=== PATIENT | female | born 1990 | race Caucasian/White ===

== ENCOUNTER 2019-03-30 01:44 | Inpatient (IN) | payer OTHER ==
[2019-03-30] VITALS (21 sets, daily range): BP systolic 90–103; BP diastolic 45–64
[2019-03-30 02:24] LABS: CREATININE 7.4 mg/dL (0.5-1.5); POTASSIUM 4.3 mmol/L (3.5-5.1)
[2019-03-30 02:27] LABS: BASOPHILS % (AUTO) 0.7 % (0.0-5.0); EOSINOPHILS % (AUTO) 0.9 % (0.0-8.0); HEMATOCRIT 28.4 % (36-48); MEAN CORPUSCULAR HEMOGLOBIN 31.2 pg (27.0-33.0); MEAN CORPUSCULAR HGB CONC 33.4 g/dL (32.0-36.0); MEAN CORPUSCULAR VOLUME 93.3 fL (79-99); MONOCYTES % (AUTO) 8.2 % (3.0-13.0); NEUTROPHILS % (AUTO) 80.2 % (40.0-77.0); PLATELET COUNT (AUTO) 106 K/uL (130-400); RED BLOOD CELL COUNT(AUTO) 3.05 MIL/uL (4.00-5.50); RED CELL DISTRIBUTION WIDTH 19.3 % (11.0-15.5); WHITE BLOOD COUNT (AUTO) 10.1 K/uL (4.8-10.8)
[2019-03-30 02:35] LABS: BILIRUBIN,DIRECT 0.2 mg/dL (0.0-0.3); BILIRUBIN,TOTAL 0.5 mg/dL (0.2-1.0); TOTAL PROTEIN, SERUM 6.3 g/dL (6.0-8.3)
[2019-03-30 02:41] LABS: B-TYPE NATRIURETIC PEPTIDE 62 pg/mL (0-100)
[2019-03-30] MEDS ORDERED: ZOSYN 3.375GM+NS 50ML 50 ML IV SCH (07:30)
[2019-03-30] MEDS ORDERED: ONDANSETRON HCL MDV 20ML 2 MG/ML VIAL IVP PRN (07:30)
[2019-03-30] MEDS ORDERED: ENOXAPARIN SODIUM 30 MG/0.3 ML SQ SCH (09:00)
[2019-03-30] MEDS ORDERED: PANTOPRAZOLE SODIUM 40 MG TABLET.DR PO SCH (09:00)
[2019-03-30] MEDS: PANTOPRAZOLE 40 MG/VIAL IVP SCH (09:00)
[2019-03-30] MEDS ORDERED: ZOSYN 3.375GM+NS 50ML 50 ML IV ONE (09:21)
[2019-03-30] MEDS ORDERED: ENOXAPARIN SODIUM 30 MG/0.3 ML SQ ONE (09:21)
--- NOTE | 2019-03-30 10:05 | NUR ---
Roderick Craig met with pt who lives with her BF Carlyle Candelario [id number]. Pt is independent, drives, works at [employer], no DMe or home care services. Pt has no PCP or rx coverage. Pt denies dc needs. Plan is home with BF Addendum: 03/30/19 at 1006 by JAH CALDERA SS Amended: Links added.
[2019-03-30] MEDS ORDERED: HEPARIN SODIUM 5000UNIT/ML 1ML VIAL ONE (15:49)
[2019-03-30] MEDS ORDERED: BACITRACIN 50,000 UNIT VIAL ONE (16:33)
[2019-03-30] MEDS ORDERED: CLINDAMYCIN 600 MG/D5% WATER 50 ML IV ONE (16:43)
[2019-03-30] MEDS ORDERED: NEOSTIGMINE 5MG/5ML SYR IV ONE (16:58)
[2019-03-30] MEDS ORDERED: DEXAMETHASONE SOD PHOSPHATE 10MG/ML 1ML VIAL ONE (16:58)
[2019-03-30] MEDS ORDERED: SUCCINYLCHOLINE 200MG/10ML SYR ONE (16:58)
[2019-03-30] MEDS ORDERED: PROPOFOL 10 MG/ML 20ML VIAL IV ONE (16:58)
[2019-03-30] MEDS ORDERED: FENTANYL CITRATE PF 50 MCG/1 ML 2ML VIAL ONE ×2 (16:58→18:42)
[2019-03-30] MEDS ORDERED: LIDOCAINE PF 2% 5ML ABBOJECT ONE (16:58)
[2019-03-30] MEDS ORDERED: MIDAZOLAM HCL 1 MG/ML 2ML VIAL ONE (16:58)
[2019-03-30] MEDS ORDERED: ONDANSETRON HCL 4 MG/2 ML VIAL ONE (16:58)
[2019-03-30] MEDS ORDERED: GLYCOPYRROLATE 1 MG/5 ML SYRINGE ONE (16:58)
[2019-03-30] MEDS ORDERED: ROCURONIUM 10MG/1ML SYR 10 MG/ML ML ONE (16:59)
[2019-03-30] MEDS ORDERED: CEFAZOLIN SODIUM 1 GM VIAL IVP PRN (17:00)
[2019-03-30] MEDS ORDERED: VASOPRESSIN 20 UNITS/ML 1ML VIAL ONE (17:26)
[2019-03-30 17:48] LABS: ABG BASE EXCESS 1.1 mmol/L (-2.0-3.0); ABG HCO3 23.7 mmol/L (21.0-28.0); ABG OXYGEN SATURATION 94.9 % (95.0-99.0); ABG PCO2 31 mmHg (32-45)
[2019-03-30] MEDS ORDERED: BUPIVACAINE/PF 0.25% 30ML VIAL IJ ONE (18:18)
--- NOTE | 2019-03-30 18:50 | NUR ---
CHEST TUBE TO WALL SUCTION. Addendum: 03/30/19 at 2050 by MU YARBROUGH RN RN Amended: Links added.
--- NOTE | 2019-03-30 18:50 | NUR ---
PT WITH DIALYSIS PORT RT CHEST AREA. PT WITH A PERITONEAL DIALYSIS PORT, COVERED WITH A DRESSING.
[2019-03-30] MEDS ORDERED: MEPERIDINE-PF 25 MG/ML SYG ONE ×2 (19:17→19:49)
--- NOTE | 2019-03-30 20:30 | NUR ---
PATIENT ARRIVED ON UNIT. CURRENTLY ON 3L NC, 02 SATS AT 97%. DENIES SOB. CHEST TUBE AT 20 CMS CONNECTION TO SUCTION. SEROSANGUINEOUS DRAINAGE. PATIENT C/O 4/10 PAIN UPON ARRIVAL. PATIENT HAS A R UPPER CHEST PEREZ ACCESSED 03/30. PATIENT HAS PERITONEAL DIALYSIS CATHETER L ABDOMEN. CATHETER OCCLUDED. DR ELLIS CONSULTED FOR OCCLUSION. PATIENT RESTING IN BED. TOLERATING WATER. NO NAUSEA OR VOMITING. WILL CONTINUE TO MONITOR.
[2019-03-30 21:55] LABS: AMYLASE,BODY FLUID 42 U/L; GLUCOSE,BODY FLUID 55 mg/dL (1-40); LIPASE,BODY FLUID 135 U/L
[2019-03-30 22:08] LABS: APPEARANCE BODY FLUID BLOODY (CLEAR); BODY FLUID RBC 1280000 /cu. mm.; BODY FLUID WBC 444 /cu. mm.; COLOR,BODY FLUID RED (LT YELLOW); SPECIMENTYPE,BODY FLUID PERICARDIAL; TOTAL VOLUME,BODY FLUID 50 mL
[2019-03-30 22:16] LABS: BF LYMPHOCYTE 33 %; BF MONOCYTE 3 %; BF OTHER CELLS 1
[2019-03-30 22:21] LABS: PH, BODY FLUID 8
--- NOTE | 2019-03-30 23:00 | NUR ---
INFORMED PITO MCINTYRE OF AMOXICILLIN ALLERGY. PER PITO Pak/Leonila PULIDO AND ADMINISTER CLINDAMYCIN 600 QID.
[2019-03-30] MEDS: HYDROMORPHONE 1 MG/1 ML AMP IVP PRN (23:04)
--- NOTE | 2019-03-31 02:25 | NUR ---
PATIENT C/O 9/10 PAIN. CURRENT PAIN MEDICATION IS NOT DUE, AVAILABLE PRN Q6H. PER PITO MCINTYRE GIVE 4MG OF MORPHINE Q4H, PAIN 7-10.
[2019-03-31] MEDS ORDERED: MORPHINE SULFATE 4 MG/1ML SYG IV PRN (02:30)
[2019-03-31 03:10] VITALS: BP 109/63
[2019-03-31] MEDS ORDERED: MORPHINE SULFATE 4 MG/1ML SYG ONE (03:12)
[2019-03-31 03:52] LABS: BASOPHILS % (AUTO) 0.6 % (0.0-5.0); EOSINOPHILS % (AUTO) 0.6 % (0.0-8.0); HEMATOCRIT 28.2 % (36-48); LYMPHOCYTES % (AUTO) 12.4 % (21.0-51.0); MEAN CORPUSCULAR HGB CONC 32.2 g/dL (32.0-36.0); MEAN CORPUSCULAR VOLUME 93.1 fL (79-99); MONOCYTES % (AUTO) 12.4 % (3.0-13.0); PLATELET COUNT (AUTO) 127 K/uL (130-400); RED BLOOD CELL COUNT(AUTO) 3.03 MIL/uL (4.00-5.50); RED CELL DISTRIBUTION WIDTH 19.1 % (11.0-15.5); WHITE BLOOD COUNT (AUTO) 10.5 K/uL (4.8-10.8)
[2019-03-31 04:14] LABS: CREATININE 6.4 mg/dL (0.5-1.5); POTASSIUM 4.5 mmol/L (3.5-5.1)
[2019-03-31 08:18] VITALS: BP 117/70
[2019-03-31] MEDS: CLINDAMYCIN 600 MG/D5% WATER 50 ML IV SCH ×4 (08:20→21:14)
[2019-03-31] MEDS: MORPHINE SULFATE 4 MG/1ML SYG IV PRN ×2 (08:21→12:17)
[2019-03-31] MEDS: PANTOPRAZOLE 40 MG/VIAL IVP SCH (10:17)
--- NOTE | 2019-03-31 10:48 | NUR ---
HARJIT Alex for in the floor. Notified the heart rate 130 for the patient.
[2019-03-31 12:03] VITALS: BP 112/71
[2019-03-31 15:43] VITALS: BP 117/71
--- NOTE | 2019-03-31 15:46 | NUR ---
SALENA De Dios for Gm Morocho's office in the floor. Checked the peritoneal access and found that it started to working. Sent the specimen for cell count and culture.
[2019-03-31 19:21] VITALS: BP 129/79
[2019-03-31] MEDS: CARVEDILOL 3.125 MG TABLET PO SCH (21:14)
[2019-03-31 23:01] VITALS: BP 120/75
[2019-03-31] MEDS: HYDROMORPHONE 1 MG/1 ML AMP IVP PRN (23:48)
[2019-04-01] VITALS (7 sets, daily range): BP systolic 96–117; BP diastolic 59–79
--- NOTE | 2019-04-01 03:54 | NUR ---
Patient alert and oriented. Resting in bed. Chest tube 20cms to suction, serosanguineous output. Medicated for pain x1. Denies sob. HR remains elevated in 120s. Will continue to monitor.
[2019-04-01] MEDS: MORPHINE SULFATE 4 MG/1ML SYG IV PRN ×3 (05:28→21:29)
--- NOTE | 2019-04-01 05:39 | NUR ---
PATIENT UP TO CHAIR
[2019-04-01] MEDS: PANTOPRAZOLE 40 MG/VIAL IVP SCH (08:49)
[2019-04-01] MEDS: CLINDAMYCIN 600 MG/D5% WATER 50 ML IV SCH ×4 (08:49→21:33)
[2019-04-01] MEDS: CARVEDILOL 3.125 MG TABLET PO SCH ×2 (08:50→21:33)
[2019-04-01 09:29] LABS: APPEARANCE BODY FLUID CLEAR (CLEAR); COLOR,BODY FLUID YELLOW (LT YELLOW); SPECIMENTYPE,BODY FLUID PERITONEAL; TOTAL VOLUME,BODY FLUID 110 mL
[2019-04-01 09:30] LABS: BODY FLUID RBC 1209 /cu. mm.; BODY FLUID WBC 189 /cu. mm.
[2019-04-01 09:35] LABS: BF LYMPHOCYTE 74 %; BF MESOTHELIAL 15 %; BF MONOCYTE 10 %
[2019-04-01 09:35] LABS: T4 (THYROXINE) 8.8 ug/dL (4.7-13.3); THYROID STIMULATING HORMONE 2.43 uIU/mL (0.36-3.74)
[2019-04-01] MEDS ORDERED: HEPARIN SODIUM 5000UNIT/ML 1ML VIAL ONE (15:25)
[2019-04-01] MEDS ORDERED: SODIUM CHLORIDE 0.9% 1000ML 1,000 ML IV ONE (15:25)
[2019-04-01] MEDS ORDERED: 0.9% SODIUM CHLORIDE 1000 ML IV BAG IV PRN (15:30)
[2019-04-01] MEDS ORDERED: SODIUM CHLORIDE 0.9% 1000ML 1,000 ML IV PRN (15:30)
[2019-04-01] MEDS ORDERED: ACETAMINOPHEN 325 MG TAB PO PRN (15:30)
[2019-04-01] MEDS ORDERED: HEPARIN SODIUM 5000UNIT/ML 1ML VIAL IJ PRN (15:30)
--- NOTE | 2019-04-01 18:18 | NUR ---
Patient went for HD. Heparin given by HD nurse.
[2019-04-02] VITALS (7 sets, daily range): BP systolic 89–106; BP diastolic 54–68
[2019-04-02 03:41] LABS: HEMATOCRIT 27.7 % (36-48); MEAN CORPUSCULAR HEMOGLOBIN 29.4 pg (27.0-33.0); MEAN CORPUSCULAR HGB CONC 32.3 g/dL (32.0-36.0); MEAN CORPUSCULAR VOLUME 90.9 fL (79-99); PLATELET COUNT (AUTO) 232 K/uL (130-400); RED BLOOD CELL COUNT(AUTO) 3.05 MIL/uL (4.00-5.50); RED CELL DISTRIBUTION WIDTH 18.3 % (11.0-15.5); WHITE BLOOD COUNT (AUTO) 7.6 K/uL (4.8-10.8)
[2019-04-02 04:03] LABS: CREATININE 5.6 mg/dL (0.5-1.5); PHOSPHORUS 4.1 mg/dL (2.5-4.9); POTASSIUM 3.9 mmol/L (3.5-5.1)
[2019-04-02] MEDS: THIAMINE HCL 100 MG TABLET PO SCH (09:53)
[2019-04-02] MEDS: CLINDAMYCIN 600 MG/D5% WATER 50 ML IV SCH ×4 (09:54→21:12)
[2019-04-02] MEDS: PANTOPRAZOLE 40 MG/VIAL IVP SCH (09:54)
[2019-04-02] MEDS: METOPROLOL TARTRATE 25 MG TAB PO SCH (21:00)
[2019-04-03] MEDS: CLINDAMYCIN 600 MG/D5% WATER 50 ML IV SCH ×4 (03:04→20:33)
[2019-04-03 03:40] VITALS: BP 106/56
[2019-04-03 07:00] VITALS: BP 104/53
[2019-04-03] MEDS: THIAMINE HCL 100 MG TABLET PO SCH (09:51)
[2019-04-03] MEDS: PANTOPRAZOLE 40 MG/VIAL IVP SCH (09:51)
[2019-04-03] MEDS: METOPROLOL TARTRATE 25 MG TAB PO SCH ×2 (09:51→20:33)
[2019-04-03 11:00] VITALS: BP 107/69
--- NOTE | 2019-04-03 14:15 | NUR ---
DR. Raymond REYNAGA IN ROOM SPEAKING WITH PT. AND PT.'S MOTHER AT BEDSIDE RE:PLAN OF CARE. QUESTIONS ANSWERED BY DR. REYNAGA.
--- NOTE | 2019-04-03 14:27 | NUR ---
DR. Raymond URBINA IN ROOM SPEAKING WITH PT. AND PT.'S MOTHER AT BEDSIDE. QUESTIONS ANSWERED BY DR. URBINA.
[2019-04-03] MEDS: MORPHINE SULFATE 4 MG/1ML SYG IV PRN (15:26)
--- NOTE | 2019-04-03 15:45 | NUR ---
PT. IN BED FOR CHEST TUBE REMOVAL. CHEST TUBE REMOVED WITH ASSISTANCE FROM Jose Carlos CHANG RN. PT. TOLERATED WELL. CALL LIGHT WITHIN REACH. BED LOW, SIDE RAILS UP X2. FAMILY MEMBERS ALLOWED BACK IN ROOM.
[2019-04-03 16:00] VITALS: BP 122/72
--- NOTE | 2019-04-03 17:00 | NUR ---
SITTING UP IN BED EATING DINNER. DENIES ANY C/O SOB. CALL LIGHT WITHIN REACH. FAMILY MEMBERS AT BEDSIDE.
[2019-04-03 19:34] VITALS: BP 119/70
[2019-04-04] VITALS: BP 124/67
[2019-04-04] MEDS: CLINDAMYCIN 600 MG/D5% WATER 50 ML IV SCH ×2 (03:32→07:48)
[2019-04-04 04:48] VITALS: BP 118/68
[2019-04-04] MEDS: THIAMINE HCL 100 MG TABLET PO SCH (07:48)
[2019-04-04] MEDS: METOPROLOL TARTRATE 25 MG TAB PO SCH (07:48)
[2019-04-04 07:50] VITALS: BP 117/66
--- NOTE | 2019-04-04 08:00 | NUR ---
ASSESSMENT PT IS AAOX3 DENIES CP DENIES SOB DENIES NV AT THIS TIME, SITTING UPRIGHT IN BED WITH NO COMPLAINTS. INCISION SITE AND OLD CT SITE WITH DRESSING IN PLACE, CLEAN AND DRY. VISITOR AT BEDSIDE, CALL LIGHT WITHIN REACH.
[2019-04-04] MEDS ORDERED: PANTOPRAZOLE SODIUM 40 MG TABLET.DR PO SCH (09:00)
[2019-04-04 11:17] VITALS: BP 134/71
--- NOTE | 2019-04-04 12:00 | NUR ---
DIALYSIS AT BEDSIDE
--- NOTE | 2019-04-04 12:10 | NUR ---
HEPARIN FOR DIALYSIS PACKING GIVEN TO QUIN PAPER CUP HANDLE MACHINE OPERATOR NURSE
[2019-04-04 15:15] VITALS: BP 112/64
[2019-04-04] MEDS ORDERED: METO25 PO (15:35)
--- NOTE | 2019-04-04 16:32 | NUR ---
DC TO HOME ALL QUESTIONS ANSWERED, AGREE TO FOLLOW UP WITH [facility] ORDERED, AGREE TO TAKE MED ORDERED. SUTURE REMOVED BY ELIZABETH MARTINO. ALL BELONGINGS TAKEN, DOWN VIA WC TO VEHICLE WITH NURSE AIDE.
[2019-04-05 06:14] LABS: HEPATITIS A ANTIBODY IGM Negative (Negative); HEPATITIS B CORE IGM Negative (Negative); HEPATITIS Bs ANTIGEN SCREEN P Negative (Negative)
== END 2019-04-04 16:32 | disposition home or self-care (01) | DRG 270 ==
LOC: EDH 01:44 → EDHIP 01:45 → 2DH 20:24
PROVIDERS: ADMIT Internal Medicine; ATTEND Internal Medicine
PROC: 02BN0ZX Excision of Pericardium, Open Approach, Diagnostic (ICD-10-PCS; 2019-03-30)
PROC: 5A1D70Z Performance of Urinary Filtration, Intermittent, Less than 6 Hours Per Day (ICD-10-PCS; 2019-03-30)
PROC: 0W9D0ZZ Drainage of Pericardial Cavity, Open Approach (ICD-10-PCS; principal; 2019-03-30 17:00)
PROC: 5A1D70Z Performance of Urinary Filtration, Intermittent, Less than 6 Hours Per Day (ICD-10-PCS; 2019-04-01)
PROC: 5A1D70Z Performance of Urinary Filtration, Intermittent, Less than 6 Hours Per Day (ICD-10-PCS; 2019-04-04)
DX: I31.3 Pericardial effusion (noninflammatory) (principal); N18.6 End stage renal disease; J90 Pleural effusion, not elsewhere classified; I12.0 Hypertensive chronic kidney disease with stage 5 chronic kidney disease or end stage renal disease; N17.9 Acute kidney failure, unspecified; I31.4 Cardiac tamponade; F43.20 Adjustment disorder, unspecified; E11.22 Type 2 diabetes mellitus with diabetic chronic kidney disease; D64.9 Anemia, unspecified; E11.51 Type 2 diabetes mellitus with diabetic peripheral angiopathy without gangrene; I95.9 Hypotension, unspecified; R06.89 Other abnormalities of breathing; R00.0 Tachycardia, unspecified; Z99.2 Dependence on renal dialysis; Z88.1 Allergy status to other antibiotic agents; Z88.2 Allergy status to sulfonamides
CPT/HCPCS: 36415; 70450; 71045; 74176; 80048; 80074; 80076; 82150; 82435; 82803; 82945; 82947; 83605; 83615; 83690; 83735; 83880; 83986; 84100; 84132; 84157; 84295; 84436; 84443; 84484; 84702; 85018; 85025; 85027; 86038; 86160; 86162; 86215; 86235; 86850; 86900; 86901; 86922; 87071; 87076; 87116; 87205; 87206; 87210; 87520; 88108; 88305; 89051; 90935; 93005; 93306; 93308; 97039; A7048; C9113; G0378; J0330; J1100; J1170; J1644; J1650; J2001; J2175; J2250; J2270; J2405; J2543; J2704; J2710; J3010; J3490; J7030; J7120

== ENCOUNTER 2019-05-04 06:45 | Day surgery (SDC) | payer MEDICARE ==
[2019-05-03 10:18] VITALS: BP 139/90
[~2019-05-04] VITALS: Ht 157.5 cm; Wt 51.8 kg
[~2019-05-04 06:45] MED LIST: IRON150C5 PO; METO25 PO; TUMS PO
[2019-05-04 07:05] VITALS: BP 133/87
[2019-05-04 07:27] LABS: BASOPHILS % (AUTO) 1.2 % (0.0-5.0); EOSINOPHILS % (AUTO) 8.3 % (0.0-8.0); HEMATOCRIT 39.9 % (36-48); LYMPHOCYTES % (AUTO) 26.9 % (21.0-51.0); MEAN CORPUSCULAR HEMOGLOBIN 30.3 pg (27.0-33.0); MEAN CORPUSCULAR VOLUME 91.6 fL (79-99); MONOCYTES % (AUTO) 8.1 % (3.0-13.0); NEUTROPHILS % (AUTO) 55.5 % (40.0-77.0); NUCLEATED RED BLOOD CELLS 0.1 % (0.0-0.19); PLATELET COUNT (AUTO) 279 K/uL (130-400); RED BLOOD CELL COUNT(AUTO) 4.36 MIL/uL (4.00-5.50); WHITE BLOOD COUNT (AUTO) 7.9 K/uL (4.8-10.8)
[2019-05-04 07:34] LABS: ALBUMIN 2.8 g/dL (3.5-5.0); BILIRUBIN,TOTAL 0.3 mg/dL (0.2-1.0); TOTAL PROTEIN, SERUM 6.9 g/dL (6.0-8.3)
[2019-05-04 07:36] LABS: INR 1.07 (0.85-1.15); PROTHROMBIN TIME 11.2 SEC (9.6-11.6)
[2019-05-04 07:40] LABS: CREATININE 13.7 mg/dL (0.5-1.5)
[2019-05-04] MEDS ORDERED: LIDOCAINE HCL 1% MDV 50ML VIAL ONE (07:46)
--- NOTE | 2019-05-04 08:20 | NUR ---
RIGHT PERMACATH REMOVAL - PATIENT PREPPED AT BEDSIDE FOR RIGHT PERMACATH REMOVAL BY DR TABOR. TIME OUT PERFORMED PRIOR TO START OF PROCEDURE. PERMACATH REMOVED INTACT, MANUAL PRESSURE HELD TO SITE X 10MIN. NO BLEEDING OR HEMATOMA NOTED. 4X4 AND OPSITE DRESSING APPLIED TO SITE. HOB ELEVATED 45 DEGREES. REPORT GIVEN TO FISH MARTINO.
[2019-05-04 08:30] VITALS: BP 120/86
--- NOTE | 2019-05-04 08:30 | NUR ---
RECEIVE PROCEDURE DONE. RECEIVED PT AWAKE ALERT ORIENTED X3. NO COMPLAINTS MADE. DRESSING TO RIGHT UPPER CHEST DRY AND INTACT, SITE NO SWELLING, NO OOZING, NO HEMATOMA NOTED. KEPT HEAD OF BED ELEVATED, PT/BOYFRIEND INSTRUCTED TO MAINTAIN HEAD OF BED ELEVATED, OR ELEVATE HEAD WITH PILLOWS AT HOME, BOTH VERBALIZED UNDERSTANDING. OFFERED ORAL FLUIDS, PT REFUSED.
[2019-05-04 08:45] VITALS: BP 126/85
[2019-05-04 09:00] VITALS: BP 127/86
--- NOTE | 2019-05-04 09:10 | NUR ---
DISCHARGE PT DISCHARGED VIA WHEELCHAIR WITH BOYFRIEND. PT STABLE. NO COMPLAINTS MADE. PUNCTURE SITE TO RIGHT UPPER CHEST REMAINS SOFT, NO SWELLING NOTED, DRESSING DRY AND INTACT, NO OOZING NO HEMATOMA NOTED. DISCHARGE INSTRUCTIONS GIVEN TO BOYFRIEND AND PT, VERBALIZED UNDERSTANDING.
== END 2019-05-04 09:10 | disposition home or self-care (01) ==
LOC: DAH 06:45
PROVIDERS: ATTEND Internal Medicine Nephrology
DX: Z45.2 Encounter for adjustment and management of vascular access device (principal); I12.0 Hypertensive chronic kidney disease with stage 5 chronic kidney disease or end stage renal disease; E11.22 Type 2 diabetes mellitus with diabetic chronic kidney disease; N18.6 End stage renal disease
CPT/HCPCS: 36415; 36589; 80053; 82948; 84703; 85025; 85610; A4606; J3490

== ENCOUNTER → 2019-12-12 | Outpatient (CLI) | payer MEDICARE | END | disposition home or self-care (01) | LOC: SHCH 11:26 | PROVIDERS: ATTEND Internal Medicine Cardiovascular Disease | DX: Z01.810 Encounter for preprocedural cardiovascular examination (principal) | CPT/HCPCS: 93306 ==

== ENCOUNTER → 2020-06-06 | Outpatient (CLI) | payer MEDICARE | END | disposition home or self-care (01) | LOC: RAH 13:18 | PROVIDERS: ATTEND Thoracic Surgery (Cardiothoracic Vascular Surgery) | DX: I12.0 Hypertensive chronic kidney disease with stage 5 chronic kidney disease or end stage renal disease (principal); N18.6 End stage renal disease; E11.22 Type 2 diabetes mellitus with diabetic chronic kidney disease; Z99.2 Dependence on renal dialysis | CPT/HCPCS: 93970 ==

== ENCOUNTER → 2021-07-12 | Outpatient (CLI) | payer OTHER | END | disposition home or self-care (01) | LOC: SHCH 13:41 | PROVIDERS: ATTEND Internal Medicine Cardiovascular Disease | DX: R00.2 Palpitations (principal) | CPT/HCPCS: 93306; 93356 ==